=== PATIENT | female | born 1985 | race Caucasian/White ===

== ENCOUNTER 2018-08-01 05:54 | Day surgery (SDC) | payer BC ==
[~2018-08-01] VITALS: Ht 152.4 cm; Wt 43.5 kg
[2018-08-01 07:31] VITALS: Ht 152.4 cm; Wt 43.5 kg
[2018-08-01] MEDS ORDERED: VITAMINS (07:36)
[2018-08-01 07:52] VITALS: BP 94/54; PULSE 72; RESP 16
[2018-08-01] MEDS ORDERED: FENTAnyl 50 MCG/ML VIAL ONE (09:38)
[2018-08-01] MEDS ORDERED: MIDAZOLAM 1 MG/ML 2 ML INJ ONE ×3 (09:38)
--- NOTE | 2018-08-01 11:25 | CONS ---
DATE OF ADMISSION: 08/01/2018 DATE OF CONSULTATION: PATIENT NAME: ELIZABETH HERRERA TYPE OF CONSULTATION: Preoperative gastroenterology. Dear Dr. Bowers: I thank you very much for this kind referral. HISTORY OF PRESENT ILLNESS: Ms. Elizabeth Herrera is a 32-year-old female patient who has been referred to me for further evaluation of rectal bleeding. The patient also gives history of chronic diarrhea. No past history of inflammatory bowel disease or colon neoplasm. Appetite is good. No weight loss. No upper abdominal pain. Not on nonsteroidal anti-inflammatory agents. No history of gallstones or liver disease. Not a hypertensive or diabetic. No heart disease, lung problem or kidney disease. SOCIAL HISTORY: Nonsmoker. No alcohol abuse. FAMILY HISTORY: No family history of gastrointestinal tract neoplasm or inflammatory bowel disease. SOCIAL HISTORY: Nonsmoker. No alcohol abuse. ALLERGIES: NO DRUG ALLERGIES. MEDICATIONS: None. PHYSICAL EXAMINATION: VITAL SIGNS: She is 5 feet tall and weighs 100 pounds. HEART: Normal heart sounds. LUNGS: Clear. ABDOMEN: Soft, no masses. Normal bowel sounds. NEUROLOGIC: Normal neurological exam. IMPRESSION: 1. Rectal bleeding. 2. Chronic diarrhea. PLAN: Colonoscopy for further evaluation. The procedure and possible complications are well explained to the patient. She understands and cons ents to the procedure. I thank you once again. With warmest personal regards, Dictated By: MAICOL VENCES/CHIP Conf#: [id number] DID#: [id number]
== END 2018-08-01 14:07 | disposition home or self-care (01) ==
LOC: GIL 05:54
PROVIDERS: ATTEND Internal Medicine Gastroenterology
DX: K62.5 Hemorrhage of anus and rectum (principal); K51.90 Ulcerative colitis, unspecified, without complications
CPT/HCPCS: 45380; 84703; 88305; J2250; J3010; Z7610